=== PATIENT | male | born 1945 | race Caucasian/White ===

== ENCOUNTER 2024-06-22 05:58 | Day surgery (SDC) | payer MEDICARE ==
[2024-06-21 12:13] VITALS: BMI 25.1
[~2024-06-22 05:58] MED LIST: EPINEPHrine 0.3 MG in Ophthalmic Irrigation Solution 500 ML IRR SCH
[2024-06-22] MEDS ORDERED: PHENYLephrine 2.5% Ophth Soln 15 ml Bottle ONE (06:14)
[2024-06-22] MEDS ORDERED: Cyclopentolate 1% Opth Drop 2 ML BOT ONE (06:14)
[2024-06-22] MEDS ORDERED: Lidocaine 1% MPF 2 ML VIAL ONE (06:14)
[2024-06-22] MEDS ORDERED: fentaNYL 50 mcg/mL 1 mL Vial ONE (07:07)
[2024-06-22] MEDS ORDERED: Midazolam HCl 2 mg/2 ml Vial ONE (07:07)
[2024-06-22] MEDS ORDERED: PROPOFOL 20 ML ONE (07:07)
[2024-06-22] MEDS ORDERED: Lidocaine 4% PF 5 ML AMP ONE (07:48)
[2024-06-22] MEDS ORDERED: CEFAZOLIN 1 GM VIAL ONE (07:48)
[2024-06-22] MEDS ORDERED: Maxitrol 0.1% Opth Oint 3.5 GM TUBE ONE (07:48)
[2024-06-22] MEDS ORDERED: Triamcinolone 40 MG/ML VIAL ONE (07:48)
[2024-06-22] MEDS ORDERED: Indocyanine Green 25 MG/10 ML VIAL ONE (07:48)
[2024-06-22] MEDS ORDERED: Bupivacaine 0.75% 10 ML VIAL ONE (07:48)
[2024-06-22] MEDS ORDERED: Lidocaine 1% PF 5 ML VIAL ONE (07:48)
== END 2024-06-22 08:50 | disposition home or self-care (01) ==
LOC: SDC 05:58
PROVIDERS: ATTEND Ophthalmology Retina Specialist
PROC: 08NE3ZZ Release Right Retina, Percutaneous Approach (ICD-10-PCS; principal; 2024-06-22)
PROC: 08T43ZZ Resection of Right Vitreous, Percutaneous Approach (ICD-10-PCS; 2024-06-22)
DX: H35.371 Puckering of macula, right eye (principal); I10 Essential (primary) hypertension; I48.91 Unspecified atrial fibrillation; I25.10 Atherosclerotic heart disease of native coronary artery without angina pectoris; E78.5 Hyperlipidemia, unspecified; N40.0 Benign prostatic hyperplasia without lower urinary tract symptoms; Z95.0 Presence of cardiac pacemaker; Z95.1 Presence of aortocoronary bypass graft; Z98.890 Other specified postprocedural states; Z79.01 Long term (current) use of anticoagulants
CPT/HCPCS: 67041; J0171; J0690; J2250; J2704; J3010; J3301; J3490